=== PATIENT | female | born 1995 | race Hispanic/Latino ===

== ENCOUNTER 2017-04-15 10:27 | Outpatient (CLI) | payer OTHER | END 2017-04-15 10:28 | disposition home or self-care (01) | LOC: BICULT 10:27 | PROVIDERS: ATTEND Family Medicine | DX: Z34.92 Encounter for supervision of normal pregnancy, unspecified, second trimester (principal); Z3A.17 17 weeks gestation of pregnancy | CPT/HCPCS: 76805 ==

== ENCOUNTER 2017-08-23 15:37 | Day surgery (SDC) | payer OTHER ==
[2017-08-23 16:10] VITALS: BP 122/72; TEMP 98.8; BMI 35.9
--- NOTE | 2017-08-23 16:35 | PDOC.LDHP ---
Labor and Delivery H&P HPI: Patient of Dr Lalitha Cannon CC: Contractions since yesterday HPI: 21 yo at 37weeks 2 days with EDC 09/11/17 here for irregular contractions. No LOF No VB no recent sexual activity She was diagnosed with gestational DM this diet controlled. Good FM. She also states some burning on urination.No fevers nor vag discharge. Review of Systems: complete ROS perfoirmed and as per HPI Current gestational age (weeks): 37 (2 days) Due date: 09/11/17 Dating criteria: last menstrual period Grav: 2 Para: 1 OB History Details: X 1 prior Current complications: gestational diabetes (Diet controlled (A1)) Abnormal US findings: No Current medications: pre-yeni vitamins Allergies/Adverse Reactions: Allergies Allergy/AdvReac Type Severity Reaction Status Date / Time No Known Allergies Allergy Unverified 01/10/13 14:35 Social history: none - Physical Exam Vital signs reviewed and normal: yes General: NAD Heart: RRR Lungs: CTAB Abdomen: gravid Extremeties: no edema FHT: category 1 [place] contractions every: every 3-5 minutes - Vaginal Exam cm dilated: 1 Effacement: 50% Station: -3 - Assessment Latent phase of labor at term. Dysuria. - Plan Plan: observation in L&D, other (We will keep on monitors for now and recheck in 1-2 hours. I have ordered a cath UA for urinary sxs. No evidence pyelonephritis.)
[2017-08-23 17:08] LABS: Bilirubin Negative (Negative); Blood, Urine Negative (Negative); Clarity CLEAR (Clear); Glucose, Urine (Dipstick) Negative (Negative); Leukocyte Negative (Negative); Nitrite Negative (Negative); Protein, Urine (Dipstick) Negative (Neg-Trace); Specific Gravity, Urine 1.023 (1.002-1.036); Urobilinogen 0.2 mg/dL (0.2-1.0); pH, Urine 6.5 (5.0-9.0)
--- NOTE | 2017-08-23 18:11 | PDOC.EVN ---
Event Note - Event Note Event Note: Follow up: Recheck of cervix unchanged at -2 cm. No evidence rom. FHTs CAT 1 UA NEGATIVE FOR uti. URINE KETONES 80, ACCUCHECK was 73 OK for outpatient follow up
== END 2017-08-23 18:25 | disposition home or self-care (01) ==
LOC: L&D/OP 15:37
PROVIDERS: ATTEND Family Medicine
DX: O47.1 False labor at or after 37 completed weeks of gestation (principal); O99.89 Other specified diseases and conditions complicating pregnancy, childbirth and the puerperium; R30.0 Dysuria; Z3A.37 37 weeks gestation of pregnancy
CPT/HCPCS: 36416; 81003

== ENCOUNTER 2017-09-03 05:30 | Inpatient (IN) | payer OTHER ==
[2017-09-03] MEDS ORDERED: HYDROcodone/Acetaminophen 5/325 mg Tablet PO PRN (06:06)
[2017-09-03] MEDS ORDERED: Ibuprofen 800 MG TAB PO PRN (06:06)
[2017-09-03] MEDS ORDERED: Promethazine HCl 25 MG/ML VIAL IM PRN ×2 (06:06→19:12)
[2017-09-03] MEDS ORDERED: Methylergonovine 0.2 MG/ML VIAL IM PRN (06:06)
[2017-09-03] MEDS ORDERED: Meperidine HCl/PF 25 MG/ML VIAL IM/IV PRN (06:06)
[2017-09-03] MEDS ORDERED: Carboprost 250 MCG/ML AMP IM PRN (06:06)
[2017-09-03] MEDS ORDERED: Misoprostol 200 MCG TAB PR PRN (06:06)
[2017-09-03] MEDS ORDERED: Ondansetron HCl/PF 4 MG/2 ML Vial IVP PRN ×2 (06:06→19:12)
[2017-09-03] MEDS ORDERED: Lidocaine 1% (PF) 30 ML VIAL SC PRN (06:06)
[2017-09-03] MEDS ORDERED: Acetaminophen 500 MG TAB PO PRN (06:06)
[2017-09-03] MEDS: Lactated Ringer's 1,000 ML IV SCH ×4 (06:15→21:23)
[2017-09-03 06:32] VITALS: BMI 36.3
[2017-09-03 07:13] LABS: HBSAg Index 0.22 S/CO (0-0.99); Hep B Surf Ag Non-Reactive S/CO (NonReactive); Syphilis Antibody Nonreactive (Nonreactive); Syphilis Antibody Index 0.04 S/CO (<1.00 Non-Reactive)
[2017-09-03] MEDS: NS w/ Oxytocin 10 units 500 ML IV SCH (07:20)
[2017-09-03 07:47] LABS: Hemoglobin 12.5 g/dL (12.0-16.0); Mean Corpuscular HGB CONC 35.1 g/dL (32.0-36.0); Mean Corpuscular Hemoglobin 32.8 pg (27.0-31.0); Mean Corpuscular Volume 93.2 fl (81.0-99.0); Mean Platelet Volume 8.3 fL (7.4-10.4); Platelet Count 317 thou/uL (130-400); RBC Distribution Width 11.6 % (11.5-14.5); Red Blood Cell (RBC) Count 3.82 mill/uL (4.20-5.40); White Blood Cell (WBC) Count 11.3 thou/uL (4.8-10.8)
[2017-09-03] MEDS: Butorphanol Tartrate 1 MG/ML VIAL SLOW IVP PRN ×2 (10:40→13:56)
[2017-09-03] MEDS ORDERED: DISCONTINUE ALL PREVIOUS NARCOTICS FS SCH (16:00)
[2017-09-03] MEDS: Bupivacaine 0.75% 13.4 ML, fentaNYL Citrate/PF 400 MCG in Sodium Chloride 0.9% 78.6 ML EPIDURAL SCH ×2 (16:34→22:45)
[2017-09-03] MEDS ORDERED: ePHEDrine/0.9% NaCl/PF SYRINGE 50 mg/10 ml SLOW IVP PRN (19:12)
[2017-09-03] MEDS ORDERED: Eucerin (Mineral Oil/Petrolatum,White) 30 gm Jar TOP PRN (19:12)
[2017-09-03] MEDS ORDERED: Lactated Ringer's 500 ML IV PRN (19:12)
[2017-09-03] MEDS ORDERED: diphenhydrAMINE 50 MG/ML VIAL IVP PRN (19:12)
[2017-09-03] MEDS ORDERED: Naloxone HCl 0.4 mg/ml Vial IVP PRN ×2 (19:12)
[2017-09-03] MEDS ORDERED: Communication Order-Pharmacy FS SCH (19:15)
[2017-09-03] MEDS ORDERED: Fentanyl 4mcg/Marcaine 0.1% Cassette 100 ML EPIDURAL SCH (19:15)
[2017-09-03] MEDS: Acetaminophen 325 MG TAB PO PRN (22:43)
[2017-09-03] MEDS ORDERED: Gentamicin Sulfate 310 MG in Sodium Chloride 0.9% 100 ML IVPB SCH (23:00)
--- NOTE | 2017-09-03 23:04 | PDOC.EVN ---
Event Note - Event Note Event Note: Asked to place IUPC by Labor RN. SVE 8cm/90/-1, vtx. FHTs are stable. UCs seen q 2-3 mins. Pit 2 10 mu/min. IUPC easily placed.
[2017-09-03] MEDS: Ampicillin 2 GM in Sodium Chloride 0.9% 100 ML IVPB SCH (23:15)
[2017-09-04] MEDS: Acetaminophen 325 MG TAB PO PRN (02:25)
[2017-09-04] MEDS: Bupivacaine 0.75% 13.4 ML, fentaNYL Citrate/PF 400 MCG in Sodium Chloride 0.9% 78.6 ML EPIDURAL SCH (03:13)
[2017-09-04] MEDS: NS w/ Oxytocin 10 units 500 ML IV SCH (03:35)
[2017-09-04] MEDS: Lactated Ringer's 1,000 ML IV SCH (03:35)
[2017-09-04] MEDS: Ampicillin 2 GM in Sodium Chloride 0.9% 100 ML IVPB SCH ×2 (04:57→15:28)
[2017-09-04] MEDS: NS / Oxytocin 40 units/1000ml 1,000 ML IV PRN ×2 (08:31→09:34)
[2017-09-04] MEDS ORDERED: Misoprostol 200 MCG TAB ONE (08:35)
[2017-09-04] MEDS ORDERED: HYDROcodone/Acetaminophen 5/325 mg Tablet PO PRN (12:43)
[2017-09-04] MEDS ORDERED: Adacel (T-DAP) 0.5 ML VIAL IM ONE (12:43)
[2017-09-04] MEDS ORDERED: Bisacodyl 10 MG SUPP PR PRN (12:43)
[2017-09-04] MEDS ORDERED: NS / Oxytocin 40 units/1000ml 1,000 ML IV SCH (12:43)
[2017-09-04] MEDS ORDERED: Lanolin Ointment 7 GM TUBE TOP PRN (12:43)
[2017-09-04] MEDS ORDERED: Milk Of Magnesia 30 ML UDCUP PO PRN (12:43)
[2017-09-04] MEDS ORDERED: Benzocaine/Menthol 20-0.5% 60 ML CAN TOP PRN (12:43)
[2017-09-04] MEDS ORDERED: Preparation H Ointment 28 GM TUBE PR PRN (12:43)
[2017-09-04] MEDS: Ibuprofen 800 MG TAB PO SCH ×2 (13:44→23:22)
[2017-09-04] MEDS: Ferrous Sulfate 325 MG TAB PO SCH (16:19)
[2017-09-04] MEDS: Docusate Calcium (SURFAK) 240 MG CAP PO SCH (23:23)
[2017-09-05 05:00] LABS: Hemoglobin 10.6 g/dL (12.0-16.0); Mean Corpuscular HGB CONC 33.8 g/dL (32.0-36.0); Mean Corpuscular Hemoglobin 32.4 pg (27.0-31.0); Mean Corpuscular Volume 95.7 fl (81.0-99.0); Mean Platelet Volume 8.1 fL (7.4-10.4); Platelet Count 233 thou/uL (130-400); RBC Distribution Width 11.4 % (11.5-14.5); Red Blood Cell (RBC) Count 3.26 mill/uL (4.20-5.40); White Blood Cell (WBC) Count 16.2 thou/uL (4.8-10.8)
[2017-09-05] MEDS: Ibuprofen 800 MG TAB PO SCH ×3 (07:38→21:17)
[2017-09-05] MEDS: Docusate Calcium (SURFAK) 240 MG CAP PO SCH ×2 (07:42→21:17)
[2017-09-05] MEDS: Ferrous Sulfate 325 MG TAB PO SCH ×2 (09:01→14:43)
--- NOTE | 2017-09-05 11:51 | PDOC.PP ---
Post Progress Note Post Day #: 1 Subjective: No c/o. Lochia normal. No fever since delivery. PO intake tolerated: yes Flatus: yes Ambulation: yes Vital Signs (12 hours) Temp Pulse Resp BP Pulse Ox 09/05/17 07:40 98.0 F 77 16 126/79 96 Weight Weight 186 lb - Physical Examination General: NAD Cardiovascular: no m/r/g, RRR Respiratory: clear to auscultation bilaterally, non-labored breathing Abdominal: + bowel sounds, lochia, no distention, appropriately TTP Result Diagrams: 09/05/17 04:31 Additional Labs: Post Labs Blood Type A POSITIVE 09/03/17 06:22 Hep Bs Antigen Non-Reactive S/CO (NonReactive) 09/03/17 06:22 (1) Vaginal delivery Code(s): O80 - ENCOUNTER FOR FULL-TERM UNCOMPLICATED DELIVERY Status: Acute - Assessment/Plan PPD #1 Routine care D/C tomorrow
[2017-09-06] MEDS: Ibuprofen 800 MG TAB PO SCH ×2 (06:26→13:47)
[2017-09-06 08:48] VITALS: BP 123/92; TEMP 97.8
[2017-09-06] MEDS: Ferrous Sulfate 325 MG TAB PO SCH ×2 (09:07→16:35)
[2017-09-06] MEDS: Docusate Calcium (SURFAK) 240 MG CAP PO SCH (09:45)
== END 2017-09-06 18:20 | disposition home or self-care (01) | DRG 775 ==
LOC: L&D 05:31 → 3SW 09-04 11:08
PROVIDERS: ADMIT Family Medicine; ATTEND Family Medicine
PROC: 3E0P7VZ Introduction of Hormone into Female Reproductive, Via Natural or Artificial Opening (ICD-10-PCS; 2017-09-03)
PROC: 10H07YZ Insertion of Other Device into Products of Conception, Via Natural or Artificial Opening (ICD-10-PCS; 2017-09-03)
PROC: 4A1H7CZ Monitoring of Products of Conception, Cardiac Rate, Via Natural or Artificial Opening (ICD-10-PCS; 2017-09-03)
PROC: 10E0XZZ Delivery of Products of Conception, External Approach (ICD-10-PCS; principal; 2017-09-04)
DX: O24.425 Gestational diabetes mellitus in childbirth, controlled by oral hypoglycemic drugs (principal); O76 Abnormality in fetal heart rate and rhythm complicating labor and delivery; Z3A.38 38 weeks gestation of pregnancy; Z37.0 Single live birth
CPT/HCPCS: 36415; 36416; 51702; 85027; 86780; 86850; 86900; 86901; 87340; C1726; J0290; J0595; J1580; J2405; J3010; J7050